=== PATIENT | female | born 1950 | race Caucasian/White ===

== ENCOUNTER 2022-11-10 15:37 | Inpatient (IN) | payer OTHER ==
[~2022-11-10] VITALS: Ht 154.9 cm; Wt 70.3 kg
[~2022-11-10 15:37] MED LIST: CEPH250C PO; PHE25 PO; PHEN-726 PO
[2022-11-10] MEDS ORDERED: iohexoL 350 mgI/mL, 100 ML INFUS..BTL IV ONE (16:03)
[2022-11-10 16:21] LABS: BASOPHILS # (AUTO) 0.1 K/uL (0.0-0.2); BASOPHILS % (AUTO) 0.6 % (0.0-2.0); EOSINOPHILS % (AUTO) 0.5 % (0.0-4.0); HEMATOCRIT 43.8 % (36-48); HEMOGLOBIN 14.9 g/dL (12.0-16.0); LYMPHOCYTES # (AUTO) 1.4 K/uL (1.0-5.5); LYMPHOCYTES % (AUTO) 15.7 % (20.5-51.5); MEAN CORPUSCULAR HEMOGLOBIN 30 pg (27-31); MEAN CORPUSCULAR HGB CONC 34 % (32-36); MEAN CORPUSCULAR VOLUME 88 fL (79.0-98.0); MONOCYTES # (AUTO) 0.5 K/uL (0.0-1.0); MONOCYTES % (AUTO) 5.6 % (1.7-9.3); NEUTROPHILS # (AUTO) 6.9 K/uL (1.8-7.7); NEUTROPHILS % (AUTO) 77.6 % (40.0-70.0); PLATELET COUNT (AUTO) 155 K/uL (130-430); RED CELL DISTRIBUTION WIDTH 13.2 % (9.0-15.0)
[2022-11-10 16:22] VITALS: BP_SYST 150
[2022-11-10 16:32] LABS: PROTHROMBIN TIME 9.9 SECS (9.5-12.5)
[2022-11-10 16:40] LABS: ALANINE AMINOTRANSFERASE 23 U/L (12-78); ALBUMIN 3.8 g/dL (3.4-4.8); ANION GAP 9 (5-15); ASPARTATE AMINOTRANSFERASE 20 U/L (10-37); CALCIUM 8.7 mg/dL (8.4-11.0); CHLORIDE 103 mmol/L (98-107); CREATININE 0.82 mg/dL (0.55-1.30); GLUCOSE 96 mg/dL (70-99); TOTAL BILIRUBIN 0.7 mg/dL (0.0-1.0); UREA NITROGEN, BLOOD 20 mg/dL (8-21)
[2022-11-10] MEDS ORDERED: ONDANSETRON HCL 4 MG/2 ML VIAL IVP ONE (16:45)
[2022-11-10] MEDS ORDERED: MECLIZINE HCL 25 MG TABLET (ANITVERT) PO ONE (17:15)
[2022-11-10] MEDS ORDERED: NACL 0.9% 1,000 ML IV ONE (17:15)
[2022-11-10] MEDS ORDERED: ASPIRIN 325 MG TABLET PO ONE (17:15)
[2022-11-10 17:29] LABS: BILIRUBIN,URINE NEGATIVE (NEGATIVE); CLARITY/URINE CLEAR (CLEAR); COLOR,URINE YELLOW (YELLOW); GLUCOSE,URINE NEGATIVE (NEGATIVE); KETONES,URINE TRACE (NEGATIVE); LEUKOCYTE ESTERASE ,URINE NEGATIVE (NEGATIVE); NITRITE, URINE NEGATIVE (NEGATIVE); PROTEIN URINE NEGATIVE (NEGATIVE); UROBILINOGEN,URINE 0.2 (0.2-1.0)
[2022-11-10 17:36] LABS: BLOOD, URINE TRACE (NEGATIVE)
[2022-11-10 17:42] LABS: BACTERIA,URINE None Seen /HPF (None Seen); MUCUS,URINE None Seen /LPF (None Seen); RBC,URINE 0-3 /HPF (0-3); WBC,URINE NONE SEEN /HPF (0-3)
[2022-11-10 17:43] LABS: BARBITURATE, URINE NEGATIVE (NEG <=200); BENZODIAZEPINE, URINE NEGATIVE (NEG <=150); CANNABINOID, URINE NEGATIVE (NEG <=50); COCAINE, URINE NEGATIVE (NEG <=150); METHAMPHETAMINES SCREEN,URINE NEGATIVE (NEG <=500); OPIATE, URINE NEGATIVE (NEG <=100); PHENCYCLIDINE SCREEN,URINE NEGATIVE (NEG <=25); UR TRICYCLIC ANTIDEPRESSANTS NEGATIVE (NEG <=300); URINE AMPHETAMINE NEGATIVE (NEG <=500); URINE METHADONE NEGATIVE (NEG <=200); URINE OXYCODONE SCREEN NEGATIVE (NEG <=100); URINE PROPOXYPHENE SCREEN NEGATIVE (NEG <=300)
[2022-11-10 18:46] LABS: CHOLESTEROL 160 mg/dL (<200)
[2022-11-10] MEDS ORDERED: ACETAMINOPHEN 325 MG TABLET PO PRN (23:00)
[2022-11-10 23:12] VITALS: BP_SYST 135
[2022-11-10 23:28] LABS: CHOLESTEROL 154 mg/dL (<200); HDL CHOLESTEROL 74 mg/dL (>55); TRIGLYCERIDES 68 mg/dL (30-150)
[2022-11-11] VITALS: BP_SYST 130
[2022-11-11] MEDS: ENOXAPARIN SODIUM 40 MG/0.4 ML SYRINGE SUBCUT SCH ×2 (04:44→22:16)
[2022-11-11] MEDS: ASPIRIN 81 MG TAB.CHEW PO SCH (09:21)
[2022-11-11 11:28] VITALS: BP_SYST 125
[2022-11-11 19:57] VITALS: BP_SYST 143
[2022-11-11 20:00] VITALS: BP_SYST 143
[2022-11-11 21:13] VITALS: BP_SYST 143
[2022-11-12] VITALS: BP_SYST 143
[2022-11-12 07:35] VITALS: BP_SYST 117
[2022-11-12] MEDS: ASPIRIN 81 MG TAB.CHEW PO SCH (08:28)
[2022-11-12 12:00] VITALS: BP_SYST 122
[2022-11-12 16:10] VITALS: BP_SYST 121
[2022-11-12 20:00] VITALS: BP_SYST 128
[2022-11-12] MEDS: ENOXAPARIN SODIUM 40 MG/0.4 ML SYRINGE SUBCUT SCH (22:01)
[2022-11-13 07:36] VITALS: BP_SYST 132
[2022-11-13] MEDS: ASPIRIN 81 MG TAB.CHEW PO SCH (09:00)
[2022-11-13 13:37] VITALS: BP_SYST 117
== END 2022-11-13 14:00 | disposition home or self-care (01) | DRG 69 ==
LOC: SED 15:37 → STU 17:59 → SMU 11-12 12:18 → STU 11-12 12:19 → SMU 11-12 16:56
PROVIDERS: ADMIT Family Medicine; ATTEND Family Medicine
DX: G45.9 Transient cerebral ischemic attack, unspecified (principal); M79.7 Fibromyalgia; Z20.822 Contact with and (suspected) exposure to COVID-19; Z88.5 Allergy status to narcotic agent; Z79.899 Other long term (current) drug therapy; Z79.82 Long term (current) use of aspirin
CPT/HCPCS: 36415; 70450-TC; 70496; 70498; 70551; 71045; 76376; 80053; 80061; 80307; 81000; 82465; 83037; 84484; 85025; 85610-TC; 85730-TC; 86886; 86900; 86901; 87081; 93005; 96361; 96374; 97116-GP; 99291; G0378; J1650; J2405; J8597; Q9967